=== PATIENT | female | born 2000 | race African-American/Black ===

== ENCOUNTER 2021-01-24 07:46 | Emergency (ER) | payer OTHER ==
[~2021-01-24] VITALS: Ht 170.2 cm; Wt 61.0 kg
[2021-01-24] MEDS: IPRATROPIUM BROMIDE (0.02%) 0.5MG/2.5ML NEB HHN STA (08:12)
[2021-01-24] MEDS: ALBUTEROL (0.083%) 2.5MG/3ML NEB HHN STA (08:13)
[2021-01-24] MEDS: METHYLPREDNISOLONE SOD SUCC 125 MG/2 ML VIAL IV STA (08:14)
[2021-01-24] MEDS ORDERED: P50 MT (09:21)
[2021-01-24] MEDS ORDERED: ALBU6.7H11 INH (09:21)
[2021-01-24 09:35] VITALS: BP 118/70
== END 2021-01-24 09:36 | disposition home or self-care (01) ==
LOC: ER 07:46
DX: J45.901 Unspecified asthma with (acute) exacerbation (principal)
CPT/HCPCS: 71045; 81025; 93005; 94644; 96374; 99285; J2930; Z7610

== ENCOUNTER 2021-09-07 20:06 | Emergency (ER) | payer MEDICAID ==
[~2021-09-07] VITALS: Ht 162.6 cm; Wt 55.0 kg
[~2021-09-07 20:06] MED LIST: ALBU6.7H15 INH; P50 MT
[2021-09-07] MEDS ORDERED: IBUPROFEN 400MG TABLET PO ONE (20:30)
[2021-09-07 20:31] VITALS: BP 142/78
[2021-09-07] MEDS ORDERED: IBUP-2028 MT (21:49)
== END 2021-09-07 22:40 | disposition home or self-care (01) ==
LOC: ER 20:06
DX: R51.9 Headache, unspecified (principal); J45.909 Unspecified asthma, uncomplicated; V43.52XA Car driver injured in collision with other type car in traffic accident, initial encounter; Y93.89 Activity, other specified; Y92.488 Other paved roadways as the place of occurrence of the external cause
CPT/HCPCS: 72100; 81025; 99283

== ENCOUNTER 2023-01-25 12:21 | Emergency (ER) | payer MEDICAID ==
[~2023-01-25] VITALS: Ht 157.5 cm; Wt 60.0 kg
[~2023-01-25 12:21] MED LIST changes: +IBUP-2028 MT
[2023-01-25 12:27] VITALS: BP 5/2
== END 2023-01-25 14:38 | disposition left against medical advice (07) ==
LOC: ER 12:24
DX: Z53.21 Procedure and treatment not carried out due to patient leaving prior to being seen by health care provider (principal)
CPT/HCPCS: 99281